=== PATIENT | male | born 1980 | race Caucasian/White ===

== ENCOUNTER 2017-01-13 19:39 | Emergency (ER) | payer SELFPAY ==
[2017-01-13 19:39] VITALS: BMI 28.5
[2017-01-13 20:03] VITALS: TEMP 98
[2017-01-13 21:28] VITALS: O2SAT 100
[2017-01-13 22:04] VITALS: BP 179/107; PULSE 70; RESP 15
--- NOTE | 2017-01-13 22:48 | C.PDOC ---
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) Current Symptoms Are (Timing): Still Present Severity: Moderate Additional History Per: Prior Records - Ankle/Foot Description Of Injury: Struck Against Object Feet: 1 - pain Past Medical History Reviewed: Historical Data, Nursing Documentation, Vital Signs Vital Signs: Last Vital Signs Temp 98 F 01/13/17 19:59 Pulse 70 01/13/17 21:53 Resp 15 01/13/17 21:53 BP 179/107 H 01/13/17 21:53 Pulse Ox 100 01/13/17 21:53 - Medical History PMH: HTN, Hyperlipidemia - [facility] Procedures INJECT/INFUSE NEC (05/09/14) Family History: States: Unknown Family Hx - Social History Hx Tobacco Use: Yes Hx Alcohol Use: Yes (socially) Hx Substance Use: No - Immunization History Hx Tetanus Toxoid Vaccination: No Hx Influenza Vaccination: Yes Hx Pneumococcal Vaccination: No Review Of Systems Except As Marked, All Systems Reviewed And Found Negative. Constitutional: Negative for: Fever, Weakness Cardiovascular: Negative for: Chest Pain Respiratory: Negative for: Shortness of Breath Gastrointestinal: Negative for: Vomiting, Abdominal Pain Musculoskeletal: Positive for: Foot Pain (right). Negative for: Neck Pain Skin: Negative for: Rash Neurological: Negative for: Weakness, Numbness, Seizures, Altered Mental Status Physical Exam - Physical Exam Appears: Non-toxic, No Acute Distress Skin: Normal Color, Warm, Dry, No Rash Head: Atraumatic, Normacephalic Eye(s): bilateral: PERRL, EOMI Neck: Normal ROM, Supple Cardiovascular: Rhythm Regular Respiratory: Normal Breath Sounds, No Accessory Muscle Use Gastrointestinal/Abdominal: Soft, No Tenderness Extremity: Normal ROM, Capillary Refill (wnl), Deformity (right great toe dislocation) Extremity: Bilateral: Normal Color And Temperature Pulses: Right Dorsalis Pedis: Normal Neurological/Psych: Oriented x3, Normal Motor, Normal Sensation ED Course And Treatment O2 Sat by Pulse Oximetry: 100 Pulse Ox Interpretation: Normal - Other Rad Right foot x-rays X-Ray: Viewed By Me, Read By Radiologist Interpretation: Dislocation of the MTP joint of the right great toe Progress Note: Toe reduced. BP improved. Reassessment Condition: Improved Orthopedic Time Out: Side verified, Site verified, Patient ID confirmed Procedure: Joint reduction Location: Right Consent obtained: Verbal Performed by: Attending Physician Diagnosis: Dislocation Type: Closed Bone: 1st Joints: MTP Joint Systemic Analgesia: Dilaudid Capillary refill: Normal Distal Sensation: Normal Distal Motor Function: Normal Capillary Refill: Normal Compartment: Normal Distal Sensation: Normal Distal Motor Function: Normal Post-reduction Radiograph: Reduced Patient tolerated procedure: Well Disposition Counseled Patient/Family Regarding: Studies Performed, Diagnosis, Need For Followup, Rx Given - Disposition Referrals: [facility] [Outside] Disposition: HOME/ ROUTINE Disposition Time: 22:49 Condition: IMPROVED Additional Instructions: Follow up in the clinic for your toe and your blood pressure. Return to the ER if you develop numbness, discoloration, severe pain, worsening of symptoms or if you have any other concerns. Prescriptions: Naproxen [Naprosyn] 1 tab PO BID PRN #20 tab PRN Reason: Pain Instructions: Finger Dislocation (ED) - Clinical Impression Clinical Impression: Dislocation of metatarsophalangeal joint of right great toe
--- NOTE | 2017-01-14 10:16 | RAD ---
PROCEDURE: Right Foot Radiographs. HISTORY: Pain s/p injury COMPARISON: None. FINDINGS: BONES: Dislocation 1st metatarsal phalangeal joint. No associated fracture identified. JOINTS: Normal. SOFT TISSUES: Normal. OTHER FINDINGS: None. IMPRESSION: First metatarsal phalangeal joint dislocation without associated fracture.
--- NOTE | 2017-01-14 10:17 | RAD ---
PROCEDURE: Radiographs of the right great toe. TECHNIQUE:: AP radiograph of the right foot, with oblique and lateral view of the right great toe. COMPARISON: Pre reduction radiographsMay 2016. FINDINGS: BONES: Anatomic alignment 1st metatarsal phalangeal joint. No acute fracture identified. JOINTS: No acute findings related to/accounting for the clinical presentation. SOFT TISSUES: Normal. OTHER FINDINGS: None. IMPRESSION: Satisfactory reduction 1st metatarsal phalangeal joint dislocation. Signed report
== END 2017-01-13 23:00 | disposition home or self-care (01) ==
LOC: C.ER 19:39
DX: S93.121A Dislocation of metatarsophalangeal joint of right great toe, initial encounter (principal); W22.8XXA Striking against or struck by other objects, initial encounter
CPT/HCPCS: 28630; 73630; 73660; 96372; 99284; J1170; J1885

== ENCOUNTER 2017-10-04 10:41 | Emergency (ER) | payer BC ==
[2017-10-04 10:41] VITALS: BMI 28.5
[2017-10-04] MEDS ORDERED: Aspirin 325 mg EC Tablets PO STA (11:00)
--- NOTE | 2017-10-04 11:08 | C.PDOC ---
History Of Present Illness 37 yo male w/PMHx HTN , compliant with Lisinopril 40mg, was sent to ED by PMD after EKG performed in office and was found abnormal. Pt reports, went to PMD office for reg. check up visit, denies any active physical complains at present time. Pt denies recent illness, fever, chills, headache, dizziness, visual changes, focal deficits, neck pain, CP, SOB, dyspnea, diaphoresis, palpitation, abd. pain, N/V, back pain. Ambulate to ED for evaluation, not in any apparent distress. called and spoke with . review EKG from office, given PMx, admission recommend to tele hospitalist service at present time. Time Seen by Provider: 10/04/17 10:45 Chief Complaint (Nursing): Abnormal Labs History Per: Patient Past Medical History Reviewed: Historical Data, Nursing Documentation, Vital Signs Vital Signs: Last Vital Signs Temp 97.9 F 10/04/17 10:48 Pulse 67 10/04/17 10:48 Resp 20 10/04/17 10:48 BP 176/120 H 10/04/17 10:48 Pulse Ox 99 10/04/17 12:46 - Medical History PMH: HTN, Hyperlipidemia Denies: Chronic Kidney Disease - [facility] Procedures INJECT/INFUSE NEC (05/09/14) Family History: States: Unknown Family Hx - Social History Hx Tobacco Use: Yes Hx Alcohol Use: Yes (socially) Hx Substance Use: No - Immunization History Hx Tetanus Toxoid Vaccination: No Hx Influenza Vaccination: Yes Hx Pneumococcal Vaccination: No Review Of Systems Except As Marked, All Systems Reviewed And Found Negative. Constitutional: Negative for: Fever, Chills Eyes: Negative for: Vision Change ENT: Negative for: Ear Discharge, Nose Discharge, Throat Pain, Throat Swelling Cardiovascular: Negative for: Chest Pain, Palpitations, Edema, Light Headedness Respiratory: Negative for: Cough, Shortness of Breath, SOB with Excertion, Wheezing Gastrointestinal: Negative for: Nausea, Vomiting, Abdominal Pain Musculoskeletal: Negative for: Neck Pain, Back Pain Skin: Negative for: Rash Neurological: Negative for: Weakness, Numbness, Altered Mental Status, Headache , Dizziness Physical Exam - Physical Exam Appears: Well, Non-toxic, No Acute Distress Skin: Normal Color, Warm, Dry, No Rash Head: Normacephalic Eye(s): bilateral: PERRL Nose: No Flaring, No Discharge Oral Mucosa: Moist, No Drooling Tongue: Normal Appearing Lips: Normal Appearing Throat: No Drooling Neck: Trachea Midline, Supple Cardiovascular: Rhythm Regular, No Friction Rub, No Murmur, No JVD, Other ((-) carotid bruits b/L) Respiratory: No Rales, No Rhonchi, No Stridor, No Wheezing Gastrointestinal/Abdominal: Soft, No Tenderness, No Distention, No Guarding Extremity: Normal ROM, No Pedal Edema, No Deformity, No Swelling Neurological/Psych: Oriented x3, Normal Speech ED Course And Treatment - Laboratory Results Result Diagrams: 10/04/17 11:33 10/04/17 11:33 Lab Interpretation: No Acute Changes ECG: Interpreted By Me, Viewed By Me (and ) ECG Rhythm: Sinus Rhythm ECG Interpretation: No Changes From Prior (12/31/16) Interpretation Of ECG: SR@70/min,LAD,T wave inversion in V5-6, no acute ST-T changes. O2 Sat by Pulse Oximetry: 99 Pulse Ox Interpretation: Normal - Radiology CXR: Interpreted by Me, Viewed By Me CXR Interpretation: Yes: No Acute Disease Progress Note: On re-evaluation, pt is afebrile, hemodynamicaly stable. Non- toxic. Remained asymptomatic. PulsEOx 99% RA. ENT: no acute findings. neck: Supple, (-) meningeal sign. Lungs: CTA B/L, BS equal B/L. Abd: benign, (-) guarding, (-) rebound. Neurologicaly intact. EKG review and compare to old study, no new acute changes noted. CXR review, normal study.Blood work review, appeas normal, Troponin negative. As per card recommendation, admission order, pt refused at present time, wish to F/U outpt. Risk of leaving AMA discussed with pt, including sudden . Pt was given opportunity to ask questions and received full explanation. Pt understand shey cceptes risks, will d/c AMA. Against Medical Advice - AMA Patient Left Against Medical Advice: The patient declines admission to the hospital and wishes to leave the Emergency Department. This action is against my medical advice. This decision was made with informed refusal. The patient was told that admission to the hospital is necessary. Explanation of the reasons why were discussed. The risks of leaving were explained to the patient and include, but are not limited to, worsening of known or currently unknown conditions, permanent disability and from undiagnosed or untreated conditions. The patient has the capacity to make this informed decision and understands my explanation of the current medical problem and risks of leaving. The patient voluntarily accepts these risks and signed an AMA form documenting our conversation. The patient was given the opportunity to ask questions and reconsider. The patient was encouraged to return to the Emergency Department at any time for further care. Disposition - Disposition Referrals: Alexis Cornelius MD [Staff Provider] - Disposition: AGAINST MEDICAL ADVICE Disposition Time: 12:46 Condition: STABLE Prescriptions: Aspirin 325 mg PO DAILY #30 tab Forms: [employer] (Armenian) - Clinical Impression Clinical Impression: Abnormal EKG, Left against medical advice
--- NOTE | 2017-10-04 11:14 | RAD ---
HISTORY: chest pain COMPARISON: Chest x-ray performed 03/15/16 TECHNIQUE: Chest PA and lateral FINDINGS: LUNGS: No focal consolidation. Please note that chest x-ray has limited sensitivity for the detection of pulmonary masses. PLEURA: No significant pleural effusion identified. No definite pneumothorax . CARDIOVASCULAR: Heart size appears within normal limits. OSSEOUS STRUCTURES: No acute osseous abnormality identified. VISUALIZED UPPER ABDOMEN: Unremarkable. OTHER FINDINGS: None. IMPRESSION: No focal consolidation, significant pleural effusion, or definite pneumothorax identified.
[2017-10-04 11:39] LABS: BASO % 0.5 % (0.0-2.0); EOS # 0.2 K/uL (0.0-0.7); EOS % 3.7 % (0.0-4.0); HEMOGLOBIN 15.3 g/dL (12.0-18.0); LYMPH # 1.9 K/uL (1.0-4.3); LYMPH % 32.2 % (20.0-40.0); MEAN CELL VOLUME 87.3 fL (80.0-94.0); MEAN CORPUSCULAR HEMOGLOBIN 30.4 pg (27.0-31.0); MEAN CORPUSCULAR HGB CONC 34.8 g/dL (33.0-37.0); MEAN PLATELET VOLUME 7.6 fL (7.2-11.7); MONO # 0.7 K/uL (0.0-0.8); MONO % 11.3 % (0.0-10.0); NEUT # 3.1 K/uL (1.8-7.0); NEUT % 52.3 % (50.0-75.0); NRBC % 0.1 % (0.0-2.0); RBC 5.04 Mil/uL (4.40-5.90); RED CELL DISTRIBUTION WIDTH 13.2 % (11.5-14.5); WHITE BLOOD COUNT 5.9 K/uL (4.8-10.8)
[2017-10-04 11:47] LABS: PROTHROMBIN TIME 11.5 SECONDS (9.7-12.2)
[2017-10-04 11:51] LABS: ALB/GLOB RATIO 1.1 (1.0-2.1); ALBUMIN 4.3 g/dL (3.5-5.0); ALT/SGPT 56 U/L (21-72); AST/SGOT 41 U/L (17-59); BLOOD UREA NITROGEN 11 mg/dL (9-20); CALCIUM 8.7 mg/dl (8.6-10.4); GFR AFRICAN-AMERICAN > 60; GFR NON-AFRICAN AMERICAN > 60
[2017-10-04 11:55] LABS: SQUAMOUS EPITHIAL 2 /hpf (0-5); URINE BACTERIA RARE (<OCC); URINE BILIRUBIN NEGATIVE (NEGATIVE); URINE BLOOD 1+ (NEGATIVE); URINE CLARITY Hazy (Clear); URINE GLUCOSE (UA) NORMAL (Normal); URINE LEUKOCYTE ESTERASE NEG Leu/uL (Negative); URINE NITRATE NEGATIVE (NEGATIVE); URINE PROTEIN 1+ mg/dL (NEGATIVE)
[2017-10-04 11:58] LABS: URINE COLOR YELLOW (YELLOW)
[2017-10-04 12:04] LABS: B-TYPE NATRIURETIC PEPTIDE 55.2 pg/mL (0-450)
[2017-10-04 13:07] VITALS: BP 164/108; PULSE 70; RESP 16; TEMP 98.3; O2SAT 100
--- NOTE | 2017-10-06 14:44 | CARD ---
APPROVED REPORT EKG Measurement Heart [id number] [id number] <Conclusion> Normal sinus rhythm Possible Left atrial enlargement Left axis deviation T wave abnormality, consider lateral ischemia Abnormal ECG
== END 2017-10-04 13:11 | disposition left against medical advice (07) ==
LOC: C.ER 10:41
DX: R94.31 Abnormal electrocardiogram [ECG] [EKG] (principal)

== ENCOUNTER 2017-12-10 12:54 | Emergency (ER) | payer OTHER ==
[2017-12-10 12:54] VITALS: BMI 28.5
[2017-12-10 13:12] VITALS: TEMP 97.7
--- NOTE | 2017-12-10 13:47 | C.PDOC ---
History Of Present Illness 37-YEAR-OLD MALE, PRESENTS TO THE EMERGENCY DEPARTMENT WITH COMPLAINTS OF KUO THAT IS ASSOCIATED WITH CHEST DISCOMFORT. PAIN HAS NOW RESOLVED. STATES HE FEELS LIKE HIS "HEART IS BEATING OUT OF CHEST." HE DENIES ANY NAUSEA/DIAPHORESIS , LIGHT HEADEDNESS. PATIENT SEEN IN 10/12 FOR SAME COMPLAINT AND FOUND TO HAVE ABNORMAL EKG. HE WAS ADVISED TO F/U OUTPATIENT WITH DR GONZALEZ FOR CARDIAC EVAL. PATIENTS DOSE OF AMLODIPINE WAS INC TO 10MG 5 DAYS AGO EXAM IS NEGATIVE Time Seen by Provider: 12/10/17 13:36 Chief Complaint (Nursing): Chest Pain History Per: Patient History/Exam Limitations: no limitations Onset/Duration Of Symptoms: Days Current Symptoms Are (Timing): Still Present Severity: Moderate Past Medical History Reviewed: Historical Data, Nursing Documentation, Vital Signs Vital Signs: Last Vital Signs Temp 97.7 F 12/10/17 13:06 Pulse 67 12/10/17 14:16 Resp 17 12/10/17 14:16 BP 145/100 H 12/10/17 14:16 Pulse Ox 98 12/10/17 14:56 - Medical History PMH: HTN, Hyperlipidemia Denies: Chronic Kidney Disease - [facility] Procedures INJECT/INFUSE NEC (05/09/14) Family History: States: No Known Family Hx - Social History Hx Tobacco Use: Yes Hx Alcohol Use: Yes (socially) Hx Substance Use: No - Immunization History Hx Tetanus Toxoid Vaccination: No Hx Influenza Vaccination: No Hx Pneumococcal Vaccination: No Review Of Systems Except As Marked, All Systems Reviewed And Found Negative. Constitutional: Negative for: Fever Cardiovascular: Positive for: Chest Pain. Negative for: Palpitations, Light Headedness Respiratory: Positive for: SOB with Excertion. Negative for: Shortness of Breath Gastrointestinal: Negative for: Nausea, Vomiting Musculoskeletal: Negative for: Neck Pain, Back Pain Neurological: Negative for: Weakness, Numbness Physical Exam - Physical Exam Appears: Non-toxic, No Acute Distress Skin: Normal Color, Warm, Dry, No Rash Head: Normacephalic Eye(s): bilateral: Normal Inspection, PERRL, EOMI Nose: Normal Oral Mucosa: Moist Lips: Normal Appearing Neck: Normal ROM Cardiovascular: Rhythm Regular, No Murmur Respiratory: Normal Breath Sounds Back: Normal Inspection Extremity: Normal ROM, No Deformity, No Swelling Neurological/Psych: Oriented x3, Normal Speech ED Course And Treatment - Laboratory Results Result Diagrams: 12/10/17 13:56 12/10/17 13:56 ECG: Interpreted By Me, Viewed By Me ECG Rhythm: Sinus Rhythm Interpretation Of ECG: FLIPPED T WAVE IN 1, L, 5, AND 6 UNCHANGED FROM OCT 12 Rate From EC O2 Sat by Pulse Oximetry: 98 (ra) Pulse Ox Interpretation: Normal Progress - Re-Evaluation Re-evaluation Note: 12/10/17 14:48 D/W DR GONZALEZ AWARE OF ER FINDINGS. RECOMMENDS HCTZ 12.5, CONTINUE CURRENT HTN MEDS FU OFFICE - Data Reviewed Data Reviewed: Lab, Diagnostic imaging, EKG, Old records Disposition Counseled Patient/Family Regarding: Studies Performed, Diagnosis, Need For Followup, Rx Given - Disposition Referrals: Alexis Gonzalez MD [Staff Provider] - Disposition: HOME/ ROUTINE Disposition Time: 14:55 Condition: IMPROVED Prescriptions: hydroCHLOROthiazide [Microzide] 12.5 mg PO DAILY #30 cap Lisinopril [Zestril] 40 mg PO DAILY #14 tab Instructions: High Blood Pressure (DC) Forms: [employer] (Azeri), Work Excuse - Clinical Impression Clinical Impression: Hypertension, Dyspnea - Scribe Statement The provider has reviewed the documentation as recorded by the Scribe (Mehran Mcintyre) All medical record entries made by the Scribe were at my direction and personally dictated by me. I have reviewed the chart and agree that the record accurately reflects my personal performance of the history, physical exam, medical decision making, and the department course for this patient. I have also personally directed, reviewed, and agree with the discharge instructions and disposition.
[2017-12-10] MEDS ORDERED: Labetalol 25mg/5ml Syringe IVP STA (13:51)
[2017-12-10] MEDS ORDERED: Labetalol 25mg/5ml Syringe ONE (14:00)
[2017-12-10 14:03] LABS: BASO % 0.7 % (0.0-2.0); EOS # 0.2 K/uL (0.0-0.7); EOS % 2.7 % (0.0-4.0); HEMOGLOBIN 14.8 g/dL (12.0-18.0); LYMPH # 1.8 K/uL (1.0-4.3); LYMPH % 26.5 % (20.0-40.0); MEAN CELL VOLUME 86.7 fL (80.0-94.0); MEAN CORPUSCULAR HEMOGLOBIN 29.8 pg (27.0-31.0); MEAN CORPUSCULAR HGB CONC 34.4 g/dL (33.0-37.0); MEAN PLATELET VOLUME 8.1 fL (7.2-11.7); MONO # 0.7 K/uL (0.0-0.8); MONO % 9.5 % (0.0-10.0); NEUT # 4.2 K/uL (1.8-7.0); NEUT % 60.6 % (50.0-75.0); NRBC % 0.1 % (0.0-2.0); RBC 4.95 Mil/uL (4.40-5.90); RED CELL DISTRIBUTION WIDTH 13.1 % (11.5-14.5); WHITE BLOOD COUNT 6.9 K/uL (4.8-10.8)
[2017-12-10 14:26] LABS: BLOOD UREA NITROGEN 9 mg/dL (9-20); GFR AFRICAN-AMERICAN > 60; GFR NON-AFRICAN AMERICAN > 60
[2017-12-10 14:34] VITALS: BP 145/100; PULSE 67; RESP 17
[2017-12-10 14:55] VITALS: O2SAT 98
--- NOTE | 2017-12-10 15:56 | RAD ---
PROCEDURE: CHEST RADIOGRAPH, 1 VIEW HISTORY: chest pain COMPARISON: Chest radiograph dated 10/04/2017. FINDINGS: LUNGS: Clear. PLEURA: No pneumothorax or pleural fluid seen. CARDIOVASCULAR: Normal. OSSEOUS STRUCTURES: No significant abnormalities. VISUALIZED UPPER ABDOMEN: Normal. OTHER FINDINGS: None. IMPRESSION: No active disease.
--- NOTE | 2017-12-11 12:53 | CARD ---
APPROVED REPORT EKG Measurement Heart [id number] 170P13 [id number] <Conclusion> Normal sinus rhythm Left axis deviation T wave abnormality, consider lateral ischemia Abnormal ECG
== END 2017-12-10 15:18 | disposition home or self-care (01) ==
LOC: C.ER 12:54
DX: I10 Essential (primary) hypertension (principal); R06.00 Dyspnea, unspecified

== ENCOUNTER 2018-03-18 06:53 | Emergency (ER) | payer OTHER ==
[2018-03-18 06:53] VITALS: BMI 28.5
--- NOTE | 2018-03-18 07:50 | C.PDOC ---
History Of Present Illness 37 y/o male with history of HTN presents to ED with c/o heartburn, chest pain and sob since 3am today when he woke up. Patient speaking in full sentences and denies fever, chills, palpitations, cough, leg swelling, nausea, vomiting or any other complaints at this time. Time Seen by Provider: 03/18/18 07:28 Chief Complaint (Nursing): Chest Pain History Per: Patient History/Exam Limitations: no limitations Onset/Duration Of Symptoms: Hrs Current Symptoms Are (Timing): Still Present Quality: "Pain" Past Medical History Reviewed: Historical Data, Nursing Documentation, Vital Signs Vital Signs: Last Vital Signs Temp 98 F 03/18/18 09:49 Pulse 80 03/18/18 09:49 Resp 18 03/18/18 09:49 BP 139/93 H 03/18/18 09:49 Pulse Ox 99 03/18/18 09:50 - Medical History PMH: HTN, Hyperlipidemia Surgical History: No Surg Hx - [facility] Procedures INJECT/INFUSE NEC (05/09/14) Family History: States: No Known Family Hx - Social History Hx Tobacco Use: Yes Hx Alcohol Use: Yes (socially) Hx Substance Use: No - Immunization History Hx Tetanus Toxoid Vaccination: No Hx Influenza Vaccination: No Hx Pneumococcal Vaccination: No Review Of Systems Constitutional: Negative for: Fever, Chills Cardiovascular: Positive for: Chest Pain. Negative for: Palpitations Respiratory: Positive for: Shortness of Breath. Negative for: Cough Gastrointestinal: Negative for: Nausea, Vomiting Skin: Negative for: Rash Neurological: Negative for: Weakness, Numbness Physical Exam - Physical Exam Appears: Non-toxic, No Acute Distress Skin: Warm, Dry, No Rash Head: Atraumatic, Normacephalic Eye(s): bilateral: Normal Inspection Oral Mucosa: Moist Throat: Normal Neck: Normal, Supple Chest: Symmetrical Cardiovascular: Rhythm Regular Respiratory: Normal Breath Sounds, No Rales, No Rhonchi, No Wheezing Gastrointestinal/Abdominal: Soft, No Tenderness, No Guarding, No Rebound Extremity: Normal ROM, No Pedal Edema, Capillary Refill (<2 seconds) Neurological/Psych: Oriented x3, Normal Speech, Normal Cognition Gait: Steady ED Course And Treatment - Laboratory Results Result Diagrams: 03/18/18 07:50 03/18/18 07:50 Lab Interpretation: Normal ECG: Interpreted By Me ECG Rhythm: Sinus Rhythm, ST/T Changes ECG Interpretation: No Changes From Prior Rate From EC O2 Sat by Pulse Oximetry: 99 (RA) Pulse Ox Interpretation: Normal - Radiology CXR: Interpreted by Me CXR Interpretation: Yes: No Acute Disease Progress Note: EKG, CXR, Blood work, UA ordered. Neb treatment and IV fluids administered. Treated with norvasc 10 mg PO. On re-evaluation feeling better in no distress Reassessment Condition: Improved Medical Decision Making Medical Decision Making: patient treated with norvasc for elevated B/P Patient did not take his medication this am Disposition Counseled Patient/Family Regarding: Studies Performed, Diagnosis, Need For Followup - Disposition Disposition: HOME/ ROUTINE Disposition Time: 10:00 Condition: STABLE Additional Instructions: Follow up with your PMD or clinic for further evaluation Take medications as directed Return to ED if any increase symptoms Instructions: High Blood Pressure in Adults, Chest Pain Forms: [facility] (Telugu), Work Excuse - POA Present On Arrival: None - Clinical Impression Clinical Impression: Chest pain, Dyspnea - 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 - Scribe Statement The provider has reviewed the documentation as recorded by the Trey Mcfadden All medical record entries made by the Cliftonibben were at my direction and personally dictated by me. I have reviewed the chart and agree that the record accurately reflects my personal performance of the history, physical exam, medical decision making, and the department course for this patient. I have also personally directed, reviewed, and agree with the discharge instructions and disposition.
[2018-03-18] MEDS ORDERED: Aluminum Hydroxide/Magnesium Hydroxide Susp (30 mL) ONE (07:54)
[2018-03-18 07:55] LABS: BASO # 0.1 K/uL (0.0-0.2); BASO % 0.9 % (0.0-2.0); EOS # 0.2 K/uL (0.0-0.7); EOS % 2.3 % (0.0-4.0); HEMOGLOBIN 15.2 g/dL (12.0-18.0); LYMPH # 1.6 K/uL (1.0-4.3); LYMPH % 22.5 % (20.0-40.0); MEAN CELL VOLUME 88.6 fL (80.0-94.0); MEAN CORPUSCULAR HEMOGLOBIN 31.4 pg (27.0-31.0); MEAN CORPUSCULAR HGB CONC 35.5 g/dL (33.0-37.0); MEAN PLATELET VOLUME 8.6 fL (7.2-11.7); MONO # 0.4 K/uL (0.0-0.8); MONO % 5.3 % (0.0-10.0); NRBC % 0.1 % (0.0-2.0); RBC 4.84 Mil/uL (4.40-5.90); RED CELL DISTRIBUTION WIDTH 13.5 % (11.5-14.5); WHITE BLOOD COUNT 7.2 K/uL (4.8-10.8)
[2018-03-18] MEDS: Alum-Mag Hydrox-Simethicone Susp (30 mL) PO STA (08:01)
[2018-03-18 08:04] VITALS: RESP 18
[2018-03-18] MEDS ORDERED: Albuterol-Ipratrop 3 mg / 0.5 (3 ml) UD ONE (08:12)
[2018-03-18] MEDS: Albuterol-Ipratrop 3 mg / 0.5 (3 ml) UD IH STA (08:13)
[2018-03-18 08:15] LABS: ALB/GLOB RATIO 1.3 (1.0-2.1); ALBUMIN 4.2 g/dL (3.5-5.0); ALT/SGPT 50 U/L (21-72); AST/SGOT 37 U/L (17-59); BLOOD UREA NITROGEN 13 mg/dL (9-20); CALCIUM 9.4 mg/dl (8.6-10.4); GFR AFRICAN-AMERICAN > 60; GFR NON-AFRICAN AMERICAN > 60
[2018-03-18 08:19] LABS: SQUAMOUS EPITHIAL 2 /hpf (0-5); URINE BILIRUBIN NEGATIVE (NEGATIVE); URINE BLOOD 1+ (NEGATIVE); URINE CLARITY Clear (Clear); URINE COLOR Yellow (YELLOW); URINE GLUCOSE (UA) NORMAL (Normal); URINE LEUKOCYTE ESTERASE NEG Leu/uL (Negative); URINE PROTEIN NEGATIVE (NEGATIVE); URINE UROBILINOGEN NORMAL mg/dL (0.2-1.0)
[2018-03-18 09:25] VITALS: O2SAT 99
--- NOTE | 2018-03-18 09:48 | RAD ---
Date of service: 03/18/2018 HISTORY: SOB COMPARISON: 12/10/2017 TECHNIQUE: Chest PA and lateral FINDINGS: LUNGS: No active pulmonary disease. PLEURA: No significant pleural effusion identified. No pneumothorax apparent. CARDIOVASCULAR: Normal. OSSEOUS STRUCTURES: No significant abnormalities. VISUALIZED UPPER ABDOMEN: Normal. OTHER FINDINGS: None. IMPRESSION: No active disease.
[2018-03-18 10:10] VITALS: BP 139/93; PULSE 80; TEMP 98
--- NOTE | 2018-03-19 11:35 | CARD ---
APPROVED REPORT Date of service: 03/18/2018 EKG Measurement Heart [id number] 170P23 [id number] <Conclusion> Normal sinus rhythm Left axis deviation T wave abnormality, consider lateral ischemia Abnormal ECG
== END 2018-03-18 10:10 | disposition home or self-care (01) ==
LOC: C.ER 06:53
DX: R07.9 Chest pain, unspecified (principal); R06.00 Dyspnea, unspecified; I10 Essential (primary) hypertension; E78.5 Hyperlipidemia, unspecified; Z87.891 Personal history of nicotine dependence

== ENCOUNTER 2018-09-17 10:14 | Emergency (ER) | payer OTHER ==
[2018-09-17 10:29] VITALS: BMI 34.2
[2018-09-17 10:36] VITALS: RESP 18
--- NOTE | 2018-09-17 11:39 | C.PDOC ---
History Of Present Illness 38 y/o male,w/PMhx of HTN and left achilles tendon rupture s/p repair, presents to the ER complaining of left foot pain which began in the morning today when getting out of bed. Denies trauma or injury. Patient states that the pain is mainly in the instep of the left foot and over the heel. Pain is worse with ambulation. Has not taken any medications for the pain. Of note, patient states that his pressure has been running high over the last few months and that he took his Lisinopril this morning. Pt is currently looking for a new PMD, and is asking to be referred to the clinic. Denies having fever, chills, headache, dizziness, vision changes, CP, SOB, back pain, neck pain, weakness, numbness, or parasthesias. Time Seen by Provider: 09/17/18 11:14 Chief Complaint (Nursing): Lower Extremity Problem/Injury History Per: Patient History/Exam Limitations: no limitations Onset/Duration Of Symptoms: Hrs Current Symptoms Are (Timing): Still Present Severity: Moderate Past Medical History Reviewed: Historical Data, Nursing Documentation, Vital Signs Vital Signs: Last Vital Signs Temp 98.0 F 09/17/18 10:29 Pulse 76 09/17/18 11:24 Resp 18 09/17/18 11:24 BP 160/103 H 09/17/18 11:24 Pulse Ox 95 09/17/18 11:24 - Medical History PMH: HTN, Hyperlipidemia Denies: Chronic Kidney Disease Other Surgeries: Hx of surgeries - [facility] INJECT/INFUSE NEC (05/09/14) Family History: States: No Known Family Hx - Social History Hx Tobacco Use: Yes Hx Alcohol Use: Yes (socially) Hx Substance Use: No - Immunization History Hx Tetanus Toxoid Vaccination: No Hx Influenza Vaccination: No Hx Pneumococcal Vaccination: No Review Of Systems Except As Marked, All Systems Reviewed And Found Negative. Constitutional: Negative for: Fever, Chills Eyes: Negative for: Vision Change ENT: Negative for: Throat Pain Cardiovascular: Negative for: Chest Pain, Palpitations, Light Headedness Respiratory: Negative for: Cough, Shortness of Breath Gastrointestinal: Negative for: Nausea, Vomiting, Abdominal Pain Genitourinary: Negative for: Dysuria, Frequency Musculoskeletal: Positive for: Foot Pain (left foot pain). Negative for: Neck Pain, Back Pain Skin: Negative for: Rash, Bruising Neurological: Negative for: Weakness, Numbness, Altered Mental Status, Headache, Dizziness Physical Exam - Physical Exam Appears: Well, Non-toxic, No Acute Distress Skin: Normal Color, Warm, Dry Head: Atraumatic, Normacephalic Eye(s): bilateral: Normal Inspection, PERRL, EOMI Nose: Normal Oral Mucosa: Moist Neck: Normal ROM, Supple Chest: Symmetrical Cardiovascular: Rhythm Regular Respiratory: Normal Breath Sounds, No Rales, No Rhonchi, No Wheezing Gastrointestinal/Abdominal: Soft, No Tenderness Extremity: Normal ROM, Tenderness (tenderness to medial aspect of left foot and over left heel), Capillary Refill (<2s), Other (left achilles tendon intact) Extremity: Bilateral: Atraumatic, No Pedal Edema, Normal Color And Temperature, Normal ROM Pulses: Left Dorsalis Pedis: Normal, Right Dorsalis Pedis: Normal Neurological/Psych: Oriented x3, Normal Speech, Normal Motor, Normal Sensation Gait: Steady ED Course And Treatment O2 Sat by Pulse Oximetry: 95 (RA) Pulse Ox Interpretation: Normal - Other Rad X-Ray-Left Ankle X-Ray: Viewed By Me, Read By Radiologist Interpretation: Date of service: 09/17/2018. PROCEDURE: Left Ankle Radiographs. HISTORY: pain to posterior ankle. COMPARISON: None available. FINDINGS: BONES: Normal. No fracture. JOINTS: Normal. No osteoarthritis. Ankle mortise maintained. Talar dome intact. SOFT TISSUES: Normal. OTHER FINDINGS: Bowdoin's tendon insetional enesthesophyte. IMPRESSION: Bowdoin's tendon insetional enesthesophyte.. Otherwise unremarkable X-Ray-Left Foot X-Ray: Viewed By Me, Read By Radiologist Interpretation: Date of service: 09/17/2018. PROCEDURE: Left Foot Rad iographs. HISTORY: pain medial foot. COMPARISON: None. FINDINGS: BONES: Normal. No fracture. JOINTS: Normal. SOFT TISSUES: Normal. OTHER FINDINGS: Bow[place]in's tendon insetional enesthesophyte. IMPRESSION: Hugo's tendon insetional enesthesophyte. Otherwise unremarkable Medical Decision Making Medical Decision Making: Plan: --Motrin PO --Tylenol PO --X-Ray-Left Ankle --X-Ray-Left Foot Xrays read as no acute fracture or dislocation, by me Patient reports decreased pain with medications Discussed with patient at length the dangers of uncontrolled HTN. Given referral to clinic, pt states he will followup tomorrow for BP management. Patient is currently asymptomatic and has no chest pain, SOB, headache, dizziness, vision changes, neck pain, back pain, abdominal pain, numbness, weakness, paresthesias. No indication for emergent treatment. Patient's foot wrapped in SHANICE bandage, and placed in surgical shoe. Recommend podiatry followup. Patient verbalized understanding, states he will followup as instructed. Refused crutches. Diagnostic testing results and plan of care discussed with patient. Strict instructions given regarding prescription use, importance of followup, and signs/symptoms to return to ER including worsening pain, chest pain, dizziness, vision changes, or any other new/worsening symptoms. Pt verbalized understanding of discussion. Patient is A&Ox3, ambulating with steady gait, with vital signs stable for discharge. Disposition - Disposition Referrals: [facility] [place] [Outside] Podiatry Clinic [Outside] Disposition: HOME/ ROUTINE Disposition Time: 13:30 Condition: IMPROVED Additional Instructions: Increase fluids Naproxen daily for pain as needed Keep foot in surgical shoe Rest, no strenuous activity Followup with clinic today or tomorrow Followup with podiatry within 2 days Followup with surgeon within 2 days Return to ER with any new/worsening symptoms Prescriptions: Naproxen [Naprosyn] 500 mg PO DAILY PRN #14 tablet PRN Reason: Pain, Moderate (4-7) Instructions: Heel Pain (Caused by Plantar Fasciitis), High Blood Pressure in Adults, Plantar Fasciitis Exercises Forms: General Discharge Instructions, [facility] (Welsh), Work Excuse - Clinical Impression Clinical Impression: Elevated blood pressure reading, Foot pain, left - PA / FOOD PREPARER / Resident Statement MD/DO has reviewed & agrees with the documentation as recorded. - Scribe Statement The provider has reviewed the documentation as recorded by the Trey Chowdhury Provider Attestation All medical record entries made by the Trey were at my direction and personally dictated by me. I have reviewed the chart and agree that the record accurately reflects my personal performance of the history, physical exam, medical decision making, and the department course for this patient. I have also personally directed, reviewed, and agree with the discharge instructions and disposition.
[2018-09-17 13:31] VITALS: BP 157/102; PULSE 69; TEMP 97.8
--- NOTE | 2018-09-17 13:56 | RAD ---
Date of service: 09/17/2018 PROCEDURE: Left Foot Radiographs. HISTORY: pain medial foot COMPARISON: None. FINDINGS: BONES: Normal. No fracture. JOINTS: Normal. SOFT TISSUES: Normal. OTHER FINDINGS: Hugo's tendon insetional enesthesophyte. IMPRESSION: Hugo's tendon insetional enesthesophyte. Otherwise unremarkable
--- NOTE | 2018-09-17 13:57 | RAD ---
Date of service: 09/17/2018 PROCEDURE: Left Ankle Radiographs. HISTORY: pain to posterior ankle COMPARISON: None available. FINDINGS: BONES: Normal. No fracture. JOINTS: Normal. No osteoarthritis. Ankle mortise maintained. Talar dome intact SOFT TISSUES: Normal. OTHER FINDINGS: Hugo's tendon insetional enesthesophyte. IMPRESSION: Hugo's tendon insetional enesthesophyte.. Otherwise unremarkable
[2018-09-17 15:21] VITALS: O2SAT 95
== END 2018-09-17 14:14 | disposition home or self-care (01) ==
LOC: C.ER 10:14
DX: M79.672 Pain in left foot (principal); R03.0 Elevated blood-pressure reading, without diagnosis of hypertension